=== PATIENT | male | born 1955 | race Caucasian/White ===

== ENCOUNTER 2024-09-22 08:16 | Outpatient (CLI) | payer MEDICARE, OTHER ==
[2024-09-22] MEDS ORDERED: Iopamidol 370 76% 100 ML VIAL ONE (13:01)
== END 2024-09-22 08:17 | disposition home or self-care (01) ==
LOC: CSHCT 08:16
PROVIDERS: ATTEND Urology
DX: N20.1 Calculus of ureter (principal); N35.916 Unspecified urethral stricture, male, overlapping sites; C61 Malignant neoplasm of prostate; N28.1 Cyst of kidney, acquired; N28.89 Other specified disorders of kidney and ureter; K80.20 Calculus of gallbladder without cholecystitis without obstruction
CPT/HCPCS: 74178; Q9967